=== PATIENT | male | born 1985 | race African-American/Black ===

== ENCOUNTER 2022-11-13 11:00 | Outpatient (CLI) | payer OTHER ==
[2022-11-13 11:25] LABS: PLATELET COUNT 109 K/uL (142-355)
[2022-11-13 11:39] LABS: POTASSIUM 3.9 mmol/L (3.6-5.2)
== END 2022-11-13 20:55 | disposition home or self-care (01) ==
LOC: LABW 11:00
PROVIDERS: ATTEND Nurse Practitioner Family
DX: L40.0 Psoriasis vulgaris (principal); Z79.899 Other long term (current) drug therapy
CPT/HCPCS: 36415; 80053; 80074; 85027; 86480